=== PATIENT | male | born 1955 | race Caucasian/White ===

== ENCOUNTER 2024-05-02 13:46 | Inpatient (IN) | payer MEDICARE, BC, SELFPAY ==
[2024-05-01 23:25] VITALS: BP 147/79
[2024-05-02] VITALS (12 sets, daily range): BP systolic 115–134; BP diastolic 66–86; BMI 27.3
[2024-05-02 00:29] LABS: Urine Albumin Negative (Neg - Trace); Urine Bilirubin Negative (Negative); Urine Character Slightly Cloudy (Clear); Urine Color Yellow; Urine Glucose Negative (Negative); Urine Ketone Trace (Negative); Urine Leukocyte 2+ (Negative); Urine Nitrite Negative (Negative); Urine Occult Blood 1+ (Negative); Urine Urobilinogen Negative (Neg - 1+)
[2024-05-02 00:38] LABS: ALT (SGPT) 25 U/L (0-50); AST (SGOT) 26 U/L (17-59); Albumin 4.3 g/dl (3.5-5.0); Alkaline Phosphatase 79 U/L (38-126); Blood Urea Nitrogen 14 mg/dl (9-20); Calcium 9.4 mg/dl (8.4-10.2); Carbon Dioxide 25 mmol/L (22-30); Chloride 102 mmol/L (98-107); Glucose 125 mg/dl (70-99); Potassium 4.1 mmol/L (3.5-5.1); Sodium 136 mmol/L (135-145); Total Bilirubin 1.5 mg/dl (0.2-1.3); Total Protein 6.8 g/dl (6.3-8.2); eGFR > 60.00
[2024-05-02 00:45] LABS: % Basophils 0.3 % (0-2); % Eosinophils 0.3 % (0-6); % Immature Granulocytes 2.1 % (0-0.5); % Monocytes 6.6 % (1.7-9.3); % Neutrophils 87.7 % (42.2-75.2); Absolute Basophils 0.1 10^3/uL (0-0.2); Absolute Eosinophils 0.1 10^3/uL (0-0.7); Absolute Immature Granulocytes 0.5 10^3/uL (0-0.05); Absolute Lymphocytes 0.7 10^3/uL (1.2-3.4); Absolute Monocytes 1.5 10^3/uL (0.1-0.6); Absolute Neutrophils 19.2 10^3/uL (1.4-6.5); Hematocrit 43.7 % (39.0-52.0); Hemoglobin 14.7 g/dL (13.0-18.0); Mean Corp Hgb Conc. 33.6 g/dL (33.0-37.0); Mean Corpuscular Volume 86.2 fL (80.0-94.0); Nucleated Red Blood Cells % 0 % (-); Platelet Count 178 10^3/uL (130-400); Red Blood Cell Count 5.07 10^6/uL (4.70-6.10); Red Cell Dist. Width 13.4 % (11.5-14.5); White Blood Cell Count 21.9 10^3/uL (4.8-10.8)
[2024-05-02 00:49] LABS: Urine Squamous Cell 0-2 /LPF (Few)
[2024-05-02 00:50] LABS: Urine Bacteria Many (Negative); Urine White Cell 30-40 /HPF (0-5)
[2024-05-02] MEDS: NSS 1000 IV (07:45)
[2024-05-02] MEDS: TYLENOL 1000 MG PO ×2 (07:45→15:10)
--- NOTE | 2024-05-02 07:46 | ED.GENMED ---
History of Present Illness
General
Chief Complaint: Urinary Symptoms
Time Seen by Provider: 05/02/24 06:46
Travel History
Have you had any contact with someone who has COVID-19?: No
Do you have any symptoms of coronavirus? Fever > 100 degrees, chills, cough, shortness of breath, sore throat, loss of taste or smell, muscle aches, or headache?: No
History of Present Illness
History of Present Illness:
68-year-old male with history of hypertension presents to the emergency department for evaluation of urinary urgency, frequency, and painful urination beginning approximate 48 hours ago. Developed fever and chills last night. Denies any nausea,
vomiting, flank pain, perineal pain, or back pain. Prior history of UTI x 1 many years ago. Denies hematuria.
Review of Systems
Review of Systems
Allergies reviewed?: Yes
All Other Systems: ROS reviewed and negative except as documented in HPI and ROS
Phy Exam
Physical Exam
Physical Exam:
GEN: Ill-appearing, no immediate distress
Eyes: PERRLA, EOMs intact, no scleral icterus
HENT: NCAT, oral mucosa moist
Lungs: CTAB, no wheezes, rales, rhonchi, normal chest wall excursion
Cardiac: Tachycardic, regular, no murmurs
Abdomen: S, NT, ND, NABS, no masses or hepatosplenomegaly
Neuro: AO x 3
MSK: No gross deformity or ecchymosis. No edema. No digital clubbing
Skin: No rashes, petechiae. Normal color, no pallor or jaundice.
Psych: Calm, cooperative, proper hygiene
Course
Orders/Labs/Results
Orders:
Orders
05/01/24 23:27
Complete Blood Count/With Diff Urgent
Comprehensive Metabolic Panel Urgent
Urinalysis Reflex To Culture Urgent
Date Specimen was Collected: 05/01/24
Time Specimen was Collected: 23:27
05/02/24 00:09
Urine Microscopic Reflex Cult Urgent
Urine Culture Urgent
DORIS Source: U
Specimen Description:
Date Specimen was Collected: 05/01/24
Time Specimen was Collected: 23:27
05/02/24 07:08
0.9% Sodium Chloride 1000 ml [Nss] 1,000 ml IV BOLUS
05/02/24 07:26
CT Abd/Pel (IV only)-DH only Urgent
Comment:
Reason For Exam: sepsis, UTI
Acetaminophen [Tylenol] 1,000 mg PO NOW STA
05/02/24 07:27
Add On- LAB Urgent
Tests Added?: PSA
05/02/24 07:43
Lactic Acid Q4H
Comment: CANCEL 2nd LACTIC ACID IF 1st LACTIC ACID IS LESS THAN 2
Blood Culture Q30M
DORIS Source: Blood/Venous
Specimen Description:
05/02/24 08:47
Gentamicin Sulfate [Gentamicin] 170 mg 0.9% Sodium Chloride [Nss] 50 ml IV NOW
05/02/24 09:13
Blood Culture Q30M
DORIS Source: Blood/Venous
Specimen Description:
05/02/24 09:31
PSA, Total - Screen Routine
Comment: TO BE COLLECTED
05/02/24 11:15
Lactic Acid Q4H
Comment: CANCEL 2nd LACTIC ACID IF 1st LACTIC ACID IS LESS THAN 2
Abnormal Lab Results
05/02/24
00:09
WBC 21.9 H 10^3/uL
(4.8-10.8)
Abs Immat Gran (auto) 0.5 H 10^3/uL
(0-0.05)
Absolute Neuts (auto) 19.2 H 10^3/uL
(1.4-6.5)
Absolute Lymphs (auto) 0.7 L 10^3/uL
(1.2-3.4)
Absolute Monos (auto) 1.5 H 10^3/uL
(0.1-0.6)
Immature Gran % 2.1 H %
(0-0.5)
Neutrophils % 87.7 H %
(42.2-75.2)
Lymphocytes % 3.0 L %
(20.5-51.1)
Glucose 125 H mg/dl
(70-99)
Total Bilirubin 1.5 H mg/dl
(0.2-1.3)
Urine Ketones Trace A
(Negative)
Ur Occult Blood Reflex 1+ A
(Negative)
Leukocyte Esterase Rfl 2+ A
(Negative)
Urine RBC 11-15 A /HPF
(0-2)
Urine WBC (Reflex) 30-40 A /HPF
(0-5)
Urine Bacteria (Reflex) Many A
(Negative)
05/02/24 00:09
05/02/24 00:09
Vital Signs
Initial and Last Documented VS:
Initial Vital Signs
Temp Pulse Resp BP Pulse Ox
99.4 F 105 17 147/79 95
05/01/24 23:25 05/01/24 23:25 05/01/24 23:25 05/01/24 23:25 05/01/24 23:25
Last Documented Vital Signs
Temp Pulse Resp BP Pulse Ox
99.9 F 100 17 134/74 96
05/02/24 03:47 05/02/24 03:47 05/01/24 23:25 05/02/24 03:47 05/02/24 03:47
MDM/Problems Addressed
MDM/Problems Addressed:
Patient noted to be retaining greater than 500 mL of urine on postvoid. Highly suspicious for acute prostatitis. Given that he is septic with high leukocytosis he will require admission for IV antibiotics. CT shows no evidence for obvious
obstructive pathology. Given IV gentamicin
*Critical Care Note
Total Time (30-74mins, 75-104mins- exclusive of procedures): Not Applicable
ED Attending Note
-
Portions of this chart may have been created with voice recognition software.� Occasional wrong word or��sound alike� substitutions may have occurred due to the inherent limitations of voice recognition software.
Discharge Plan
Departure
Patient Disposition: Admit
Date of Disposition: 05/02/24
Time of Disposition: 09:31
Presentation/result/management discussed w/ accepting MD/DO: Hospitalist
Discharge Problem:
Acute prostatitis, Sepsis
Prescriptions:
No Action
pravastatin 40 mg Tablet
40 mg PO HS
meloxicam [Mobic] 15 mg Tablet
15 mg PO DAILYPRN PRN (Reason: mild pain)
diltiazem HCl 300 mg Capsule,Extended Release 24 Hr
300 mg PO DAILY
lisinopril 5 mg Tablet
5 mg PO DAILY
cholecalciferol (vitamin D3) [Vitamin D3] 25 mcg (1,000 unit) Tablet
25 mcg PO DAILY
omega 7-lwf-iyw-fish oil [Fish Oil] 1,000 mg (120 mg-180 mg) Capsule
1 cap PO DAILY
Referrals:
Michael Aguilar DO [Family Provider] -
Interventions
Interventions:
*Risk Screen - Suicide Last Done: 05/01/24 23:25
*General Assessment Last Done: 05/01/24 23:25
*Neglect/Abuse Screening Last Done: 05/01/24 23:25
*ED COVID-19 Vaccine History Last Done: 05/01/24 23:25
Discharge Date and Time
Print Language: DANISH
[2024-05-02 08:11] LABS: Lactic Acid 1.8 mmol/L (0.7-2.0)
[2024-05-02] MEDS: GENTAMICIN 54.25 MG IV (09:24)
[2024-05-02] MEDS: LR 1000 IV ×2 (12:38→21:24)
--- NOTE | 2024-05-02 12:55 | HPS.HSE ---
Family Physician
-
Family Physician: Michael Aguilar
Chief Complaint
-
urinary symptoms
History of Present Illness
68 y/o M, hx of HTN and HLD presenting to ER last evening with urinary urgency, frequency and painful urination. Symptoms began 48 hours ago. Now this past evening he had chills and fevers. No flank pain. No back pain. No hematuria. No other
complaints. Has only 1 prior UTI in history.
Medical History
Past Medical History
Past Medical History: Reports Other (HTN and HLD)
Past Surgical History: Reports Orthopedic
Social History
Tobacco: Non-smoker
Alcohol: None
Drug: None
Personal:
Living: With Family
Family History
Family History: Not pertinent
Allergies / Home Medications
Allergies reflects when Allergies were last updated in [employer].
Home Medications with original date entered in [employer]
Allergy/Medication List:
Allergies
Allergy/AdvReac Type Severity Reaction Status Date / Time
No Known Allergies Allergy Unverified 05/01/24 23:25
Home Medications
cholecalciferol (vitamin D3) 25 mcg (1,000 unit) tablet (Vitamin D3) 25 mcg PO DAILY 05/02/24
diltiazem HCl 300 mg capsule,24 hr,extended release 300 mg PO DAILY 05/02/24
lisinopril 5 mg tablet 5 mg PO DAILY 05/02/24
meloxicam 15 mg tablet 15 mg PO DAILYPRN PRN mild pain 05/02/24
omega 0-xti-dxv-fish oil 1,000 mg (120 mg-180 mg) capsule (Fish Oil) 1 cap PO DAILY 05/02/24
pravastatin 40 mg tablet 40 mg PO HS 05/02/24
Review of Systems
-
A 12 point ROS was completed and negative except as noted: Yes
Physical Exam
Vital Signs
Vital Signs
Temp Pulse Resp BP Pulse Ox
99.9 F 95 24 119/66 96
05/02/24 03:47 05/02/24 12:45 05/02/24 12:45 05/02/24 12:00 05/02/24 03:47
Physical Exam
General: Well Developed and Well Nourished
HEENT: NormoCephalic
Respiratory: Clear; No Wheezes or Rales
Cardiac: S1/S2 and Regular Rhythm
Neuro: AO x 3
Psych: Calm
Laboratory Results
-
05/02/24 00:09
05/02/24 00:09
Laboratory Results
Lactic Acid Cancelled 05/02/24 11:15
Total Bilirubin 1.5 mg/dl (0.2-1.3) H 05/02/24 00:09
AST 26 U/L (17-59) 05/02/24 00:09
ALT 25 U/L (0-50) 05/02/24 00:09
Alkaline Phosphatase 79 U/L (38-126) 05/02/24 00:09
Data Reviewed
-
Lab Data: Labs Reviewed by me
Impression/Plan
-
Assessment:
Sepsis POA (leukocytosis, tachycardia and tachypnea)
UTI, possible prostatitis
- CT: No CT evidence for pyelonephritis. Small focus of presumed scarring within the posterior midpole of the right kidney. No hydronephrosis or nephrolithiasis.
- continue IVF
- s/p Gentamicin
- start Levaquin. day 1. Follow cultures
- BS/SC protocol
- Urology consult
Essential HTN
- hold LISA
- continue Cardizem
HLD - continue statin
DVT ppx: Lovenox
Code: Full
--- NOTE | 2024-05-02 13:51 | CONS.URO ---
Consultation
-
Date/Time Consultation Performed: 05/02/2024 1510
Performing Provider: Tanmay
Reason for Consultation: UTI; Elevated PSA
Medical History
History of Present Illness
68-year-old male presented to ED with urinary urgency, frequency, painful urination, fever and chills beginning approximate 48 hours ago. No flank pain, perineal pain, or back pain. Prior history of UTI x 1
Has an established urologist whom he saw earlier this year -- 'everything was okay'; no prior PSA elevations
Past Medical History
Past Medical History: Other (HTN and HLD)
Social History
Personal:
Living: With Family
Family History
Family History: Reviewed & Not Pertinent
Allergies/Home Medications
Allergies
Allergy/AdvReac Type Severity Reaction Status Date / Time
No Known Allergies Allergy Unverified 05/01/24 23:25
Home Medications
�Medication �Instructions �Recorded �Confirmed �Type
cholecalciferol (vitamin D3) 25 25 mcg PO DAILY 05/02/24 05/02/24 History
mcg (1,000 unit) tablet (Vitamin
D3)
diltiazem HCl 300 mg capsule,24 300 mg PO DAILY 05/02/24 05/02/24 History
hr,extended release
lisinopril 5 mg tablet 5 mg PO DAILY 05/02/24 05/02/24 History
meloxicam 15 mg tablet 15 mg PO DAILYPRN PRN mild pain 05/02/24 05/02/24 History
omega 8-kwa-isd-fish oil 1,000 mg 1 cap PO DAILY 05/02/24 05/02/24 History
(120 mg-180 mg) capsule (Fish Oil)
pravastatin 40 mg tablet 40 mg PO HS 05/02/24 05/02/24 History
Physical Exam
Vital Signs
Vital Signs
Temp Pulse Resp BP Pulse Ox
99.9 F 95 24 119/66 96
05/02/24 03:47 05/02/24 12:45 05/02/24 12:45 05/02/24 12:00 05/02/24 03:47
Lab / Testing Results
Laboratory Results
05/02/24 00:09
05/02/24 00:09
Physical Exam
adult male on ED bed
General: No Apparent Distress
HEENT: Normocephalic
GI: Soft and Non Distended
Genito-urinary: No Costovertebral Tend
Psych: Calm
Assessment / Plan
-
Patient Diagnosis:
suspected UTI
Elevated PSA -- 37; most likely reflective of BPH
Enlarged Prostate
Distended Urinary Bladder
Plan:
empiric abx until micro results permit tailoring
Tamsulosin to improve voiding
CIC prn
pt to f/u as an outpatient with his established urologist
Data Reviewed
-
CT Scan: Image personally visualized and interpreted
Lab Data: Labs Reviewed
Old Records: Reviewed
--- NOTE | 2024-05-02 16:49 | PTCARENOTE ---
pt admitted from ED AOx3 denies pain. Regular heart sounds LCTA B/L on RA abd soft NT +BSx3. skin CDI, +PP. CB in reach, family at bedside
[2024-05-02] MEDS: LEVAQUIN 100 IV (17:29)
[2024-05-02] MEDS: LOVENOX 40 MG SC (17:34)
[2024-05-02] MEDS: ZOFRAN 4 MG IV (20:11)
[2024-05-02] MEDS: FLOMAX 0.400000000000000022 MG PO (21:23)
[2024-05-02] MEDS: PRAVACHOL 40 MG PO (21:23)
[2024-05-03 07:00] VITALS: BP 137/85
[2024-05-03 07:03] LABS: % Basophils 0.2 % (0-2); % Eosinophils 0.1 % (0-6); % Lymphocytes 4.8 % (20.5-51.1); % Neutrophils 86.9 % (42.2-75.2); Absolute Immature Granulocytes 0.2 10^3/uL (0-0.05); Absolute Lymphocytes 0.9 10^3/uL (1.2-3.4); Absolute Monocytes 1.3 10^3/uL (0.1-0.6); Absolute Neutrophils 16.6 10^3/uL (1.4-6.5); Hemoglobin 13.6 g/dL (13.0-18.0); Mean Corpuscular Volume 85.3 fL (80.0-94.0); Mean Platelet Volume 10.3 fL (7.4-10.4); Nucleated Red Blood Cells % 0 % (-); Platelet Count 154 10^3/uL (130-400); Red Blood Cell Count 4.69 10^6/uL (4.70-6.10); Red Cell Dist. Width 13.5 % (11.5-14.5); White Blood Cell Count 19.1 10^3/uL (4.8-10.8)
[2024-05-03 07:35] LABS: ALT (SGPT) 21 U/L (0-50); AST (SGOT) 34 U/L (17-59); Albumin 3.4 g/dl (3.5-5.0); Alkaline Phosphatase 83 U/L (38-126); Blood Urea Nitrogen 14 mg/dl (9-20); Calcium 9.3 mg/dl (8.4-10.2); Carbon Dioxide 24 mmol/L (22-30); Chloride 103 mmol/L (98-107); Estimated Creatinine Clearance 80 ml/min; Glucose 102 mg/dl (70-99); Sodium 136 mmol/L (135-145); Total Bilirubin 0.8 mg/dl (0.2-1.3); Total Protein 5.8 g/dl (6.3-8.2); eGFR > 60.00
[2024-05-03] MEDS: ZOFRAN 4 MG IV (07:49)
[2024-05-03] MEDS: CARDIZEM CD 300 MG PO (07:53)
[2024-05-03] MEDS: LR IV (08:10)
--- NOTE | 2024-05-03 10:39 | W.PN.URO.CBU ---
Today's Communication / Plan
-
abx x 14 days per micro
pt to f/u with his urologist, Dr Yanez later this month
Assessment / Plan
-
UTI: gram negative
Elevated PSA -- 37; most likely reflective of UTI
Enlarged Prostate
Voiding sx -- improved
Diagnosis
-
Date of Service: May 03, 2024
-
Patient Diagnosis:
UTI -- gram negative organism
Elevated PSA -- 37; most likely reflective of UTI
Enlarged Prostate
Distended Urinary Bladder
Subjective
-
'much better, peeing alot but haven't had to use the catheter'
Objective
-
Vital Signs
Temp Pulse Resp BP Pulse Ox
97.6 F 99 18 137/85 94
05/03/24 07:00 05/03/24 07:53 05/03/24 07:00 05/03/24 07:53 05/03/24 07:00
Intake and Output
05/02/24 05/03/24 05/04/24
06:59 06:59 06:59
Intake Total 2235 / 2235
Output Total 1060 / 1060
Balance 1175 / 1175
Intake:
Oral fluids 960 / 960
IV fluids (Total) 1275 / 1275
Output:
Urine, Voided 1060 / 1060
Other:
Number of approximated MODERATE 1
amounts of urine
Laboratory Results
05/03/24 06:28
05/03/24 06:28
urine: Gram -
Physical Exam
-
General - well developed, well nourished, no acute distress
--- NOTE | 2024-05-03 13:44 | W.PN.HOSP.TC ---
Today's Communication/Plan
-
await urine culture finalization before home DC
Assessment / Plan
Assessment / Plan
Assessment:
Sepsis POA (leukocytosis, tachycardia and tachypnea)
gram negative UTI, possible prostatitis
- CT: No CT evidence for pyelonephritis. Small focus of presumed scarring within the posterior midpole of the right kidney. No hydronephrosis or nephrolithiasis.
- sepsis protocol IVF
- s/p Gentamicin
- continue Levaquin. day 2. Follow cultures
- BS/SC protocol prn
- Urology consult appreciated. OP Urology follow up
Essential HTN
- hold LISA
- continue Cardizem
HLD - continue statin
DVT ppx: Lovenox
Code: Full
Anticipated Discharge: Within 24 hours
Subjective/Interval History
-
Date of Service: May 03, 2024
no new complaints
voiding better
Objective Data
-
Labs:
Laboratory Results
05/03/24
06:28
WBC 19.1 H
Hgb 13.6
Hct 40.0
Plt Count 154
Sodium 136
Potassium 4.0
Chloride 103
Carbon Dioxide 24
BUN 14
Creatinine 0.9
Glucose 102 H
Calcium 9.3
Total Bilirubin 0.8
AST 34
ALT 21
Alkaline Phosphatase 83
Vital Signs:
Vital Signs
Temp Pulse Resp BP Pulse Ox
97.6 F 99 18 137/85 94
05/03/24 07:00 05/03/24 07:53 05/03/24 07:00 05/03/24 07:53 05/03/24 07:00
I&O
05/02/24 05/03/24 05/04/24
06:59 06:59 06:59
Intake Total 2234 / 2234
Output Total 1060 / 1060
Balance 1175 / 1175
Physical Exam
-
General: No Apparent Distress
HEENT: Normocephalic and Atraumatic
Respiratory: Negative Wheezes or Rales
Cardiac: Regular Rhythm and S1/S2
GI: Soft and Nontender
Genito-urinary: No Costovertebral Tender
Neuro: AO x 3
Hematologic / Lymphatic: No Lymphadenopathy
Psych: Calm
Data Reviewed
-
Total Time Spent with Patient (in minutes): 42
Labs: Labs Reviewed by me
[2024-05-03 15:00] VITALS: BP 122/80
[2024-05-03] MEDS: LEVAQUIN 100 IV (15:59)
--- NOTE | 2024-05-03 16:34 | CM ---
Alert awake oriented patient who lives with his Cordelia who lives in a condo with 0 steps to enter. He is independent in driving and in all activities of daily living.He was offered VN he declined need.
No VN hx / No SNF history
Pharmacy [facility] [place]
PCP DR Aguilar
PLAN Home Declined VN
[2024-05-03] MEDS: LOVENOX 40 MG SC (17:02)
[2024-05-03] MEDS: PRAVACHOL 40 MG PO (21:02)
[2024-05-03] MEDS: FLOMAX 0.400000000000000022 MG PO (21:02)
[2024-05-03 23:33] VITALS: BP 153/93
[2024-05-04 07:21] LABS: % Basophils 0.3 % (0-2); % Eosinophils 1.2 % (0-6); % Immature Granulocytes 0.3 % (0-0.5); % Lymphocytes 13.3 % (20.5-51.1); % Monocytes 12.1 % (1.7-9.3); % Neutrophils 72.8 % (42.2-75.2); Absolute Eosinophils 0.1 10^3/uL (0-0.7); Absolute Lymphocytes 1.2 10^3/uL (1.2-3.4); Absolute Monocytes 1.1 10^3/uL (0.1-0.6); Absolute Neutrophils 6.5 10^3/uL (1.4-6.5); Mean Corp Hgb Conc. 33.3 g/dL (33.0-37.0); Mean Corpuscular Hgb 28.8 pg (27.0-31.0); Mean Corpuscular Volume 86.5 fL (80.0-94.0); Mean Platelet Volume 10.6 fL (7.4-10.4); Nucleated Red Blood Cells % 0 % (-); Platelet Count 163 10^3/uL (130-400); Red Blood Cell Count 4.51 10^6/uL (4.70-6.10); Red Cell Dist. Width 13.4 % (11.5-14.5); White Blood Cell Count 8.9 10^3/uL (4.8-10.8)
[2024-05-04 07:45] LABS: ALT (SGPT) 23 U/L (0-50); AST (SGOT) 28 U/L (17-59); Albumin 3.3 g/dl (3.5-5.0); Alkaline Phosphatase 74 U/L (38-126); Blood Urea Nitrogen 15 mg/dl (9-20); Calcium 8.8 mg/dl (8.4-10.2); Carbon Dioxide 28 mmol/L (22-30); Chloride 103 mmol/L (98-107); Estimated Creatinine Clearance 80 ml/min; Glucose 96 mg/dl (70-99); Potassium 3.9 mmol/L (3.5-5.1); Sodium 139 mmol/L (135-145); Total Bilirubin 0.6 mg/dl (0.2-1.3); Total Protein 5.7 g/dl (6.3-8.2); eGFR > 60.00
[2024-05-04] MEDS: CARDIZEM CD 300 MG PO (08:00)
[2024-05-04] MEDS: TYLENOL 650 MG PO (08:06)
[2024-05-04 08:19] VITALS: BP 145/81
--- NOTE | 2024-05-04 10:55 | W.PN.HOSP.TC ---
Today's Communication/Plan
-
dc to home today
Assessment / Plan
Assessment / Plan
Assessment:
Sepsis POA (leukocytosis, tachycardia and tachypnea)
Klebsiella aurogenes UTI, possible prostatitis
- CT: No CT evidence for pyelonephritis. Small focus of presumed scarring within the posterior midpole of the right kidney. No hydronephrosis or nephrolithiasis.
- s/p sepsis protocol IVF
- s/p Gentamicin
- continue Levaquin. day 3. Follow cultures
- BS/SC protocol prn - voiding ok
- started on Flomax
- Urology consult appreciated. OP Urology follow up
Essential HTN
- resume LISA
- continue Cardizem
HLD - continue statin
DVT ppx: Lovenox
Code: Full
More than 30 minutes spent in discharge including
Final examination of the patient
Summarizing hospital stay
Instructions for continuing care to all relevant caregivers
Preparation of discharge records, prescriptions, and referral forms
Total time spent (in minutes): 41
Anticipated Discharge: Today
Subjective/Interval History
-
Date of Service: May 04, 2024
denies any new complaints at present
Objective Data
-
Labs:
Laboratory Results
05/04/24
05:57
WBC 8.9
Hgb 13.0
Hct 39.0
Plt Count 163
Sodium 139
Potassium 3.9
Chloride 103
Carbon Dioxide 28
BUN 15
Creatinine 0.9
Glucose 96
Calcium 8.8
Total Bilirubin 0.6
AST 28
ALT 23
Alkaline Phosphatase 74
Vital Signs:
Vital Signs
Temp Pulse Resp BP Pulse Ox
98.0 F 78 16 145/81 96
05/04/24 08:19 05/04/24 08:19 05/04/24 08:19 05/04/24 08:19 05/04/24 08:19
I&O
05/03/24 05/04/24 05/05/24
06:59 06:59 06:59
Intake Total 2235 / 2235 2040 / 2040
Output Total 1060 / 1060 200 / 200
Balance 1175 / 1175 1840 / 1840
Physical Exam
-
General: No Apparent Distress
HEENT: Normocephalic and Atraumatic
Respiratory: Negative Wheezes
Cardiac: Regular Rhythm and S1/S2
GI: Soft
Genito-urinary: No Costovertebral Tender
Musculoskeletal: No Edema
Neuro: AO x 3
Hematologic / Lymphatic: No Lymphadenopathy
Psych: Calm
Data Reviewed
-
Total Time Spent with Patient (in minutes): 44
Labs: Labs Reviewed by me
--- NOTE | 2024-05-04 10:59 | W.DS.TRANS ---
DC Summary - [employer] Consultant
-
Discharge Instructions:
Discharge Diagnosis/Procedures UTI and enlarged prostate
Diet Regular
Activity As tolerated
Bathing Restrictions None
Instructions:
Stand-Alone Forms:
Changes to Home Medications: No
Discharge Medications:
DC Medications w/original date entered in [employer]
cholecalciferol (vitamin D3) 25 mcg (1,000 unit) tablet (Vitamin D3) 25 mcg PO DAILY Supplement 05/02/24
diltiazem HCl 300 mg capsule,24 hr,extended release 300 mg PO DAILY Arrhythmia 05/02/24
lisinopril 5 mg tablet 5 mg PO DAILY Blood Pressure 05/02/24
meloxicam 15 mg tablet 15 mg PO DAILYPRN PRN mild pain 05/02/24
omega 8-apg-vzn-fish oil 1,000 mg (120 mg-180 mg) capsule (Fish Oil) 1 cap PO DAILY Supplement 05/02/24
pravastatin 40 mg tablet 40 mg PO HS High Cholesterol 05/02/24
acetaminophen 325 mg tablet 650 mg (2 x 325 mg) PO Q4HPRN PRN mild pain/LOTT/temp> 100.4F #30 tabs 05/04/24
levofloxacin 500 mg tablet 500 mg PO QPM #12 tabs 05/04/24
tamsulosin 0.4 mg capsule 0.4 mg PO HS #30 caps 05/04/24
Home Medication Changes
Pending Results: No
Total time spent discharging patient (in min): 42
[2024-05-04 11:31] VITALS: BP 136/88
--- NOTE | 2024-05-04 13:15 | W.PN.URO.CBU ---
Today's Communication / Plan
-
abx
f/u with Dr Yanez
Assessment / Plan
-
UTI - Klebsiella
Elevated PSA -- 37; most likely reflective of UTI
Enlarged Prostate
Voiding sx -- improved
Diagnosis
-
Date of Service: May 04, 2024
-
Patient Diagnosis:
UTI -- Klebsiella
Elevated PSA -- 37; most likely reflective of UTI
Enlarged Prostate
Distended Urinary Bladder
Subjective
-
voiding
Objective
-
Vital Signs
Temp Pulse Resp BP Pulse Ox
97.6 F 92 17 136/88 98
05/04/24 11:31 05/04/24 11:31 05/04/24 11:31 05/04/24 11:31 05/04/24 11:31
Intake and Output
05/03/24 05/04/24 05/05/24
06:59 06:59 06:59
Intake Total 2235 / 2235 2040 / 2040
Output Total 1060 / 1060 200 / 200
Balance 1175 / 1175 1840 / 1840
Intake:
Oral fluids 960 / 960 1740 / 1740
IV fluids (Total) 1275 / 1275 200 / 200
IV piggybacks 100 / 100
Output:
Urine, Voided 1060 / 1060 200 / 200
Other:
Number of approximated MODERATE 1 2
amounts of urine
Laboratory Results
05/04/24 05:57
05/04/24 05:57
urine cx: klebsiella
Physical Exam
-
General - well developed, well nourished, no acute distress
Chest - clear bilaterally
Abdomen - soft, non-tender, positive bowel sounds, no CVAT, no incisional pain or distention
Genitalia - normal
Rectal - normal
Skin - warm & dry with no rash
Neuro - AOx3, no motor deficits
Extremities - no clubbing, no cyanosis, no edema
Incision - clean, dry
Dressing - clean, dry, intact
--- NOTE | 2024-05-04 13:44 | CM ---
MD entered order for discharge.
Pt declined need for VN at home.
will drive him home.
Pt agrees with discharge.
PLAN Home no needs
== END 2024-05-04 11:48 | disposition home or self-care (01) | DRG 872 ==
LOC: 3 WEST ACU 13:46
PROVIDERS: Emergency Medicine; Physician Assistant; ADMITTING PHYSICIAN Internal Medicine; CONSULT PHYSICIAN Specialist; EMERGENCY PHYSICIAN Emergency Medicine; FAMILY PHYSICIAN Family Medicine
DX: A41.9 Sepsis, unspecified organism (principal); N39.0 Urinary tract infection, site not specified; I10 Essential (primary) hypertension; E78.5 Hyperlipidemia, unspecified
CPT/HCPCS: 51701; 51798; 74177; 80053; 81003; 81015; 83605; 85025; 87040; 87077; 87086; 87186; 96361; 96365; 99285; G0103; Q9967